=== PATIENT | male | born 1965 | race Caucasian/White ===

== ENCOUNTER 2016-11-13 18:06 | Emergency (ER) | payer OTHER ==
[~2016-11-13] VITALS: Ht 172.7 cm; Wt 90.0 kg
[~2016-11-13 18:06] MED LIST: ALBUAER3 INH; AMLO10TA2 PO; LOVA20TA PO
[2016-11-13 18:07] VITALS: BP 157/82; PULSE 82; RESP 20; TEMP 98.1; O2SAT 98
[2016-11-13] MEDS ORDERED: KETOROLAC TROMETHAMINE 60 MG/2 ML (IM) VIAL IM ONE (18:45)
[2016-11-13] MEDS ORDERED: ORPHENADRINE INJ 60 MG/2 ML AMP IM ONE (18:45)
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
[2016-11-13] MEDS ORDERED: ZOCO20TA PO (19:36)
--- NOTE | 2016-11-13 20:31 | RADRPT ---
EXAM DATE/TIME: 11/13/2016 19:54 [facility] COMPARISON: No previous studies available for comparison. INDICATIONS : Fall, right hip pain. RADIATION DOSE: 31.42 CTDIvol (mGy) MEDICAL HISTORY : Cardiovascular disease. Hypertension. SURGICAL HISTORY : None. ENCOUNTER: Initial ACUITY: 1 day PAIN SCALE: 3/10 LOCATION: Right Hip TECHNIQUE: Volumetric scanning of the hip was performed. Using automated exposure control and adjustment of the mA and/or kV according to patient size, radiation dose was kept as low as reasonably achievable to o btain optimal diagnostic quality images. FINDINGS: Advanced osteoarthritis is seen involving the hip joint. There is femoral head flattening. Prominent osteophytes arising from the acetabulum and femoral head. The inferior osteophyte within the femoral head is what is generating the lucency on the recent x-ray. No acute fracture observed. No soft tissu e swelling. The visualized bowel structures are unremarkable. CONCLUSION: 1. No fracture. 2. Advanced degenerative changes of the hip. Krishna Chen Jr., MD on November 13, 2016 at 20:28 Board Certified Radiologist. This report was verified electronically.
[2016-11-13] MEDS ORDERED: DICL75TA PO (20:48)
--- NOTE | 2016-11-13 20:51 | PD ---
Physical Exam Date Seen by Provider: November 13, 2016 Time Seen by Provider: 20:49 Data Data Last Documented VS Vital Signs Date Time Temp Pulse Resp B/P Pulse Ox O2 Delivery O2 Flow Rate FiO2 11/13/16 18:07 98.1 82 20 157/82 98 Room Air Orders Hip, Uni(Ap&Lat) Wo Ap Pelvis (11/13/16 ) Ketorolac Inj (Toradol Inj) (11/13/16 18:45) Orphenadrine Inj (Norflex Inj) (11/13/16 18:45) Ct Hip W/O Contrast (11/13/16 ) MDM Medical Record Reviewed: Yes Supervised Visit with PAUL: No Interpretation(s) Right hip: Degenerative changes unable to determine acute fracture versus arthritis. Radiologist is concerned this may be acute. CT right hip: No acute fracture. Degenerative changes. Differential Diagnosis MDM: High Differential diagnoses: Fracture, sprain, strain, dislocation, contusion, neurovascular injury Narrative Course This is chronic right hip pain. Patient given prescription for diclofenac. He is referred back to the clinic as well as [facility] Diagnosis Primary Impression: acute exacerbation of chronic right hip pain Patient Instructions: General Instructions Additional Instruction: Rest. Elevation. Ice packs for the next 3 days. crutches. No weight-bearing and then progress to weight-bearing as tolerated. Medications as directed Follow-up with the clinic in one week. Follow-up with [facility] in one week. Return to the ER if any problems Med/Other Pt SpecificInfo: Prescription(s) given Scripts Diclofenac Sodium DR 75 Mg Tabdr75 Mg PO BID #30 TAB Prov:LiNila cabrera 11/13/16 Disposition: 01 DISCHARGE HOME Condition: Stable Hong Black November 13, 2016 20:51
== END 2016-11-13 21:17 | disposition home or self-care (01) ==
LOC: NEPK 18:06
DX: M25.551 Pain in right hip (principal); G89.29 Other chronic pain; E78.00 Pure hypercholesterolemia, unspecified; I10 Essential (primary) hypertension; F17.210 Nicotine dependence, cigarettes, uncomplicated
CPT/HCPCS: 73502; 73700; 96372; 99284; E0113; J1885; J2360